=== PATIENT | male | born 1990 | race Caucasian/White ===

== ENCOUNTER 2020-12-25 10:29 | Emergency (ER) | payer MEDICAID ==
--- NOTE | 2020-12-25 11:06 | ED Physician Documentation ---
PD HPI MHE - Stated complaint Stated Complaint: MED REFILL - Chief complaint Chief Complaint: General - History obtained from History obtained from: Patient - History of Present Illness Primary symptom: Anxiety, Other (poor sleep). No: Suicidal ideation, Homicidal ideation, Psychosis Timing - onset: How many weeks ago (1-2) Contributing factors: No: Substance abuse - ETOH, Substance abuse - drugs Similar symptoms before: Diagnosis (has bipolar and has been recently on LIthium since last fall, and it worked for him. Moved back to [facility] and no PMD yet. He had run out of med and thought he would be okay without it but having trouble sleeping and anxious, so wanting Rx for med sooner than getting new PMD.) Recently seen: Not recently seen Review of Systems Constitutional: denies: Fever Nose: denies: Rhinorrhea / runny nose, Congestion Throat: denies: Sore throat Respiratory: denies: Cough GI: denies: Vomiting, Diarrhea Neurologic: denies: Altered mental status, Headache Psychiatric: reports: Anxiety, Insomnia. denies: Suicidal, Homicidal PD PAST MEDICAL HISTORY - Past Medical History Past Medical History: No Cardiovascular: None Respiratory: None Neuro: None Endocrine/Autoimmune: None GI: None : None HEENT: None Psych: Anxiety, Bipolar disorder, ADD/ADHD, Post traumatic stress disorder Musculoskeletal: None Derm: None - Past Surgical History Past Surgical History: Yes Ortho: Other - Present Medications Home Medications: Ambulatory Orders Medication Instructions Recorded Confirmed Alprazolam [Xanax] 1 mg PO Q6HR PRN 12/25/20 12/25/20 Dextroamphetamine/Amphetamine 30 mg PO DAILY 12/25/20 12/25/20 [Adderall 30 mg Tablet] LORazepam [Ativan] 1 mg PO BID PRN #15 tab 12/25/20 Bibo ER [Lithobid] 300 mg PO BID 12/25/20 12/25/20 Bibo ER [Lithobid] 300 mg PO BID 30 Days #60 tab 12/25/20 - Allergies Allergies/Adverse Reactions: Allergies Allergy/AdvReac Type Severity Reaction Status Date / Time No Known Drug Allergies Allergy Verified 12/25/20 10:32 - Social History Does the pt smoke?: Yes Smoking Status: Current every day smoker Does the pt drink ETOH?: Yes Does the pt have substance abuse?: No - Immunizations Immunizations are current?: Yes PD ED PE NORMAL - Vitals Vital signs reviewed: Yes - General General: Alert and oriented X 3, No acute distress, Well developed/nourished - Derm Derm: Normal color, Warm and dry - Neuro Neuro: Alert and oriented X 3, 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, No motor deficit, Normal speech Eye Opening: Spontaneous Motor: Obeys Commands Verbal: Oriented GCS Score: 15 - Psych Psych: Normal mood, Normal affect Results - Vitals Vitals: Vital Signs - 24 hr 12/25/20 12/25/20 10:32 11:29 Temperature 36.2 C L 36.8 C Heart Rate 84 73 Respiratory 18 18 Rate Blood Pressure 125/86 H 121/72 O2 Saturation 100 96 Oxygen O2 Source Room air PD MEDICAL DECISION MAKING - ED course Complexity details: reviewed old records, considered differential, d/w patient Departure - Departure Disposition: 01 Home, Self Care Clinical Impression: Bipolar 1 disorder, Encounter for medication refill Condition: Stable Record reviewed to determine appropriate education?: Yes Follow-Up: Erum Posada PA [Physician No Access] - [facility] [Provider Group] Prescriptions: LORazepam [Ativan] 1 mg PO BID PRN #15 tab PRN Reason: Anxiety Bibo ER [Lithobid] 300 mg PO BID 30 Days #60 tab Comments: Start the Bibo once daily for a week, then to the twice weekly. Follow-up with a local clinic in the next several weeks to months before you need a refill. I provided a couple of clinic numbers. It may depend a little bit on which insurance you end up getting as to which clinic accepts you as a patient unfortunately. Typically they will be able to see you at least once as an ER follow up. Discharge Date/Time: 12/25/20 11:32
[2020-12-25 11:30] VITALS: BP 121/72
== END 2020-12-25 11:32 | disposition home or self-care (01) ==
LOC: ED 10:29
DX: F31.9 Bipolar disorder, unspecified (principal); F41.9 Anxiety disorder, unspecified; Z76.0 Encounter for issue of repeat prescription; F17.200 Nicotine dependence, unspecified, uncomplicated
CPT/HCPCS: 99282; 99283

== ENCOUNTER 2021-02-08 12:26 | Emergency (ER) | payer MEDICAID ==
[2021-02-08 12:34] VITALS: BP 146/86
--- OUTSIDE RECORDS SUMMARY | 2021-02-08 12:37 | EXTERNAL MEDICAL SUMMARY RPT | Continuity of Care Document ---
:1990 Demographics Phone Unavailable Preferred Language Unknown Marital Status Unknown Quaker Affiliation Unknown Race Unknown Ethnic Group Unknown Author Organization [facility] Address [address] [id number] Phone Social History date description facility [id number]
--- NOTE | 2021-02-08 12:42 | ED Physician Documentation ---
PD HPI UPPER EXT INJURY - Stated complaint Stated Complaint: RT SHOULDER PX - Chief complaint Chief Complaint: Ext Problem - History obtained from History obtained from: Patient - History of Present Illness Location: Right, Shoulder Type of injury: Other (hurting more with exercise and use of hand tools at work. Had had prior dislocation and prolonged healing few years ago and had feeling of shoulder partly dislocating episodically.). No: Fall, Twist Timing - onset: How many weeks ago (1) Timing - details: Abrupt onset (worsening of his chronic shoulder pain with some use/lifting of it.), Still present Worsened by: Moving (anterior aspect.), Palpating Associated symptoms: No: Weakness, Numbness, Swelling Similar symptoms before: Diagnosis (rotator cuff injury years ago with recurrent pain problems.) Recently seen: Emergency Dept (seen in ER just over a month ago for refill of his lithium. He says tried to get PCP through his insurance and given clinic name off [place]. He states he is still awaiting appt. Has not been to ortho about his shoulder. He is close to out of his lithium as well. Also with insomnia/anxiety.) Review of Systems Constitutional: denies: Fever, Chills Nose: denies: Rhinorrhea / runny nose, Congestion Throat: denies: Sore throat Respiratory: denies: Cough GI: denies: Nausea, Vomiting, Diarrhea Neurologic: reports: Confused (he feels lightheaded and some midl confusion at times and feels that his lithium dose is a bit high. Had been taking 300 mg ER BID.). denies: Altered mental status Psychiatric: reports: Anxiety, Insomnia. denies: Suicidal, Homicidal PD PAST MEDICAL HISTORY - Past Medical History Cardiovascular: None Respiratory: None Neuro: None Endocrine/Autoimmune: None GI: None : None HEENT: None Psych: Anxiety, Bipolar disorder, ADD/ADHD, Post traumatic stress disorder Musculoskeletal: None Derm: None - Past Surgical History Past Surgical History: Yes Ortho: Other - Present Medications Home Medications: Ambulatory Orders Medication Instructions Recorded Confirmed Alprazolam [Xanax] 1 mg PO Q6HR PRN 12/25/20 12/25/20 Dextroamphetamine/Amphetamine 30 mg PO DAILY 12/25/20 12/25/20 [Adderall 30 mg Tablet] LORazepam [Ativan] 1 mg PO BID PRN #15 tab 12/25/20 Symerton ER [Lithobid] 300 mg PO BID 12/25/20 12/25/20 Symerton ER [Lithobid] 300 mg PO BID 30 Days #60 tab 12/25/20 ALPRAZolam [Alprazolam] 0.5 mg PO BID PRN #20 tablet 02/08/21 HYDROcod/ACETAM 5/325 [[place] 5/325] 1 ea PO Q6H PRN #18 tablet 02/08/21 Symerton Carbonate [Symerton 450 mg PO DAILY #30 02/08/21 Carbonate ER] tiZANidine [Zanaflex] 4 mg PO Q8H PRN #25 tablet 02/08/21 - Allergies Allergies/Adverse Reactions: Allergies Allergy/AdvReac Type Severity Reaction Status Date / Time No Known Drug Allergies Allergy Verified 02/08/21 12:29 - Social History Does the pt smoke?: Yes Smoking Status: Current every day smoker Does the pt drink ETOH?: Yes Does the pt have substance abuse?: No - Immunizations Immunizations are current?: Yes PD ED PE NORMAL - Vitals Vital signs reviewed: Yes - General General: Alert and oriented X 3, Well developed/nourished, Other (somewhat tangential but still conversant and comprehensible. Guarded ROM of the right shoulder. ) - Neck Neck: Supple, no meningeal sign, No adenopathy - Cardiac Cardiac: RRR, No murmur - Respiratory Respiratory: Clear bilaterally - Derm Derm: Normal color, Warm and dry - Extremities Extremities: Other (right shoulder with some tenderness anteriorly. ) - Neuro Neuro: Alert and oriented X 3, No motor deficit, Normal speech Results - Vitals Vitals: Vital Signs - 24 hr 02/08/21 12:29 Temperature 36.6 C Heart Rate 100 Respiratory 16 Rate Blood Pressure 146/86 H O2 Saturation 100 Oxygen O2 Source Room air PD MEDICAL DECISION MAKING - ED course Complexity details: considered differential (he states still awaiting new appt for PCP. [place] I told him he needs to get PCP for ongoing refills/meds. He also asks about meds for pain for shoulder and for helping with sleep/insomnia but that might last and work for anxiety too. ), d/w patient Departure - Departure Disposition: 01 Home, Self Care Clinical Impression: Bipolar 1 disorder, Encounter for medication refill Rotator cuff disorder Qualifiers: Laterality: right Qualified Code(s): M67.911 - Unspecified disorder of synovium and tendon, right shoulder Insomnia Qualifiers: Insomnia type: unspecified Qualified Code(s): G47.00 - Insomnia, unspecified Condition: Stable Record reviewed to determine appropriate education?: Yes Follow-Up: [facility] [Provider Group] [facility] [Provider Group] Polo Magana MD [Provider Admit Priv/Credential] - Prescriptions: ALPRAZolam [Alprazolam] 0.5 mg PO BID PRN #20 tablet PRN Reason: Anxiety Symerton Carbonate [Symerton Carbonate ER] 450 mg PO DAILY #30 HYDROcod/ACETAM 5/325 [[place] 5/325] 1 ea PO Q6H PRN #18 tablet PRN Reason: Pain tiZANidine [Zanaflex] 4 mg PO Q8H PRN #25 tablet PRN Reason: Spasms Comments: The lithium comes as 304 150 mg tablets so I wrote for the 450 mg to take once daily as a middle dosage lower than the 600 mg total you had been taking. Use Tylenol 4 times daily for pain with some ibuprofen throat and as needed. Alternatively hydrocodone periodically if needed for worse pain. Alprazolam at night if needed for sleep and see if that helps with anxiety as well. You could use tizanidine muscle relaxant for the shoulder and back as well as directed. Follow-up with counseling and psychiatry. You could try [facility] in [place] here and see if the are able to care for you. You will also need to get a primary care physician to help with the several different problems and prescriptions. Call for appointments for primary care to get that finally set up. You can follow-up with orthopedics regarding your shoulder pain, I provided Dr. Shipman in our orthopedist on-call phone number to call for an appointment. Use the sling when up and doing activity to reduce irritation of the shoulder muscles. Gentle range of motion 2-3 times a day on the shoulder however so does not get stiff. Discharge Date/Time: 02/08/21 13:53
[2021-02-08] MEDS ORDERED: HYDROcod/ACETAM 5/325 MG TABLET PO STA (13:35)
== END 2021-02-08 13:53 | disposition home or self-care (01) ==
LOC: ED 12:26
DX: M67.911 Unspecified disorder of synovium and tendon, right shoulder (principal); F31.9 Bipolar disorder, unspecified; F41.9 Anxiety disorder, unspecified; G47.00 Insomnia, unspecified; Z76.0 Encounter for issue of repeat prescription; F17.200 Nicotine dependence, unspecified, uncomplicated
CPT/HCPCS: 99283; 99284; A9270